=== PATIENT | female | born 1970 ===

== ENCOUNTER 2021-07-07 12:15 | Inpatient (IN) | payer OTHER ==
[~2021-07-07] VITALS: Ht 149.9 cm; Wt 77.1 kg
[2021-07-07] MEDS ORDERED: EXFORGE 5-1601 EACH (14:36)
[2021-07-08] MEDS ORDERED: ROSUVASTATIN CA20 MG (11:52)
== END 2021-07-11 13:04 | disposition home or self-care (01) | DRG 737 ==
LOC: O/R 07-08 09:16 → OB/GYN 07-08 12:15
PROVIDERS: ADMIT Specialist; ATTEND Specialist
PROC: 0DQH0ZZ Repair Cecum, Open Approach (ICD-10-PCS; 2021-07-08)
PROC: 0DTJ0ZZ Resection of Appendix, Open Approach (ICD-10-PCS; 2021-07-08)
PROC: 0UT70ZZ Resection of Bilateral Fallopian Tubes, Open Approach (ICD-10-PCS; 2021-07-08)
PROC: 0DBU0ZZ Excision of Omentum, Open Approach (ICD-10-PCS; 2021-07-08)
PROC: 0TN70ZZ Release Left Ureter, Open Approach (ICD-10-PCS; 2021-07-08)
PROC: 0TN60ZZ Release Right Ureter, Open Approach (ICD-10-PCS; 2021-07-08)
PROC: 07BD0ZX Excision of Aortic Lymphatic, Open Approach, Diagnostic (ICD-10-PCS; 2021-07-08)
PROC: 07BC0ZX Excision of Pelvis Lymphatic, Open Approach, Diagnostic (ICD-10-PCS; 2021-07-08)
PROC: 0UT20ZZ Resection of Bilateral Ovaries, Open Approach (ICD-10-PCS; principal; 2021-07-08 14:30)
DX: C56.1 Malignant neoplasm of right ovary (principal); N99.71 Accidental puncture and laceration of a genitourinary system organ or structure during a genitourinary system procedure; D12.1 Benign neoplasm of appendix; D19.1 Benign neoplasm of mesothelial tissue of peritoneum; D36.0 Benign neoplasm of lymph nodes; D28.2 Benign neoplasm of uterine tubes and ligaments; R19.00 Intra-abdominal and pelvic swelling, mass and lump, unspecified site